=== PATIENT | female | born 1935 | race Caucasian/White ===

== ENCOUNTER 2016-10-22 10:48 | Emergency (ER) | payer MEDICARE, BC ==
[~2016-10-22 10:48] MED LIST: Sodium Chloride 0.9% 1,000 ML BAG ONE
[2016-10-22] MEDS ORDERED: methylPREDNISolone Sod Succ/PF 125 MG/2 ML VIAL ONE (11:37)
[2016-10-22 11:52] LABS: ALT (SGPT) 12 U/L (8-55); AST (SGOT) 17 U/L (5-34); Albumin 4.1 g/dL (3.4-4.8); Alkaline Phosphatase 104 U/L (40-150); Anion Gap 16 mmol/L (10-20); BUN (Urea Nitrogen) 13 mg/dL (9.8-20.1); Bilirubin, Total 0.8 mg/dL (0.2-1.2); CK (CPK) 32 U/L (29-168); Calc. Creatinine Clearance 0 mL/min (70-130); Calcium 10.3 mg/dL (7.8-10.44); Carbon Dioxide 21 mmol/L (23-31); Chloride 98 mmol/L (98-107); Estimated GFR-MDRD 86; Globulin 3.7 g/dL (2.4-3.5); Glucose 109 mg/dL (83-110); Potassium 4.1 mmol/L (3.5-5.1); Protein, Total 7.8 g/dL (5.8-8.1); Sodium 131 mmol/L (136-145)
[2016-10-22 11:56] LABS: CKMB 1.2 ng/mL (0-6.6); Troponin I 0.021 ng/mL (< 0.028)
[2016-10-22 12:10] LABS: Hemoglobin 14.1 g/dL (12.0-16.0); Mean Corpuscular HGB CONC 33.8 g/dL (32.0-36.0); Mean Corpuscular Hemoglobin 29.5 pg (27.0-31.0); Mean Corpuscular Volume 87.2 fL (81.0-99.0); Mean Platelet Volume 6.3 fL (7.4-10.4); Platelet Count 594 thou/uL (130-400); RBC Distribution Width 16.2 % (11.5-14.5); Red Blood Cell (RBC) Count 4.79 mill/uL (4.20-5.40); White Blood Cell (WBC) Count 14.7 thou/uL (4.8-10.8)
[2016-10-22 12:16] LABS: Anisocytosis SLIGHT = 6-15 cells (100X) (0-5/hpf); Band 5 % (5-11); Large Platelets SLIGHT; Lymphocytes 7 % (21-51); MDiff Complete? YES; Manual Diff?? YES; Monocytes 2 % (0-10); Neutrophil 86 % (42-75)
[2016-10-22 12:17] LABS: PLT Morphology Comment Appears Increased
--- NOTE | 2016-10-22 12:26 | RAD ---
PORTABLE CHEST HISTORY: Cough. COMPARISON: 12/14/2015 FINDINGS: Diffuse increased interstitial thickening, along with fibrotic stranding, is again noted. The heart is enlarged. Aortic calcification is noted. There is a mass-like density in the right lower lung, which is more prominent today. This is concer derian for a pulmonary parenchymal mass lesion and does show evidence of change when compared to films dating back to 2015. Consider further evaluation with CT. IMPRESSION: 1. Focal density in the lower right lung, medially, which could represent a focal infiltrate, altho ugh an underlying mass lesion cannot be excluded. Close followup. Consider CT. 2. There are chronic lung parenchymal changes, which are again noted, along with cardiomegaly and a therosclerotic changes in the aorta. POS: [facility]
[2016-10-22] MEDS ORDERED: Albuterol Sulfate 2.5 mg/0.5 ml Neb ONE (13:02)
== END 2016-10-22 13:27 | disposition short-term general hospital (02) ==
LOC: MADERS 10:48
DX: J18.9 Pneumonia, unspecified organism (principal); I10 Essential (primary) hypertension; E87.1 Hypo-osmolality and hyponatremia; J44.9 Chronic obstructive pulmonary disease, unspecified; Z87.891 Personal history of nicotine dependence; Z79.899 Other long term (current) drug therapy
CPT/HCPCS: 36415; 71010; 80053; 82550; 82553; 83880; 84484; 85025; 87040; 87070; 87205; 93005; 96365; 96375; J1956; J2930; J7050; J7611; J7620

== ENCOUNTER 2016-11-25 11:29 | Outpatient (CLI) | payer MEDICARE, BC ==
--- NOTE | 2016-11-25 13:21 | RAD ---
TWO VIEWS CHEST: History: Fall. FINDINGS: PA and lateral chest demonstrate blunting of the costophrenic angles bilaterally compatible with krista ateral pleural scar. Mild pulmonary vascular congestion is seen. No significant interval change is s een since the previous comparison exam from 12-14-15. IMPRESSION: Findings compatible with pleural scarring. POS: [facility]
--- NOTE | 2016-11-25 13:22 | RAD ---
AP AND OBLIQUE VIEWS OF THE RIGHT RIBS: History: Fall, right sided pain. FINDINGS: The right ribs are unremarkable. No definite evidence of right rib fracture is seen. No evidence of pneumothorax is seen. IMPRESSION: No evidence of right rib fracture seen. POS: [facility]
== END 2016-11-25 11:30 | disposition home or self-care (01) ==
LOC: MADRAD 11:29
PROVIDERS: ATTEND Family Medicine
DX: W19.XXXA Unspecified fall, initial encounter (principal)
CPT/HCPCS: 71020

== ENCOUNTER 2017-02-09 09:55 | Outpatient (CLI) | payer MEDICARE, BC ==
[2017-02-09 10:46] LABS: ALT (SGPT) 15 U/L (8-55); AST (SGOT) 21 U/L (5-34); Albumin 3.7 g/dL (3.4-4.8); Alkaline Phosphatase 84 U/L (40-150); Anion Gap 10 mmol/L (10-20); BUN (Urea Nitrogen) 8 mg/dL (9.8-20.1); Bilirubin, Direct 0.2 mg/dL (0.1-0.3); Bilirubin, Total 0.5 mg/dL (0.2-1.2); Calc. Creatinine Clearance 0 mL/min (70-130); Calcium 10.2 mg/dL (7.8-10.44); Carbon Dioxide 29 mmol/L (23-31); Cardiac Risk 2.7 (Less than 4.5); Chloride 94 mmol/L (98-107); Cholesterol 173 mg/dl (< 200 Desired); Estimated GFR-MDRD 79; Glucose 84 mg/dL (83-110); HDL Cholesterol 64 mg/dL (>60 Neg Risk); LDL Cholesterol, Calculated 95 mg/dL; Potassium 4.1 mmol/L (3.5-5.1); Protein, Total 7.3 g/dL (6.0-8.3); Sodium 129 mmol/L (136-145); Triglycerides 68 mg/dL (Less than 150)
[2017-02-09 10:47] LABS: #Basophils 0.2 thou/uL (0.0-0.2); #Eosinphils 0.3 thou/uL (0.0-0.7); #Lymphocytes 1.4 thou/uL (1.20-3.40); #Monocytes 0.8 thou/uL (0.11-0.59); #Neutrophils 3.8 thou/uL (1.40-6.50); %Basophils 2.7 % (0.0-1.0); %Eosinophils 4.5 % (0.0-10.0); %Neutrophils 58.8 % (42.0-75.0); Mean Corpuscular HGB CONC 31.3 g/dL (32.0-36.0); Mean Corpuscular Hemoglobin 26.9 pg (27.0-31.0); Mean Corpuscular Volume 85.9 fl (81.0-99.0); Mean Platelet Volume 5.6 fL (7.4-10.4); Platelet Count 594 thou/uL (130-400); RBC Distribution Width 16.8 % (11.5-14.5); Red Blood Cell (RBC) Count 5.19 mill/uL (4.20-5.40); White Blood Cell (WBC) Count 6.5 thou/uL (4.8-10.8)
== END 2017-02-09 09:56 | disposition home or self-care (01) ==
LOC: MADLABBHPM 09:55
PROVIDERS: ATTEND Family Medicine
DX: I42.9 Cardiomyopathy, unspecified (principal)
CPT/HCPCS: 36415; 80048; 80061; 80076; 85025

== ENCOUNTER 2017-11-29 10:49 | Emergency (ER) | payer MEDICARE, BC ==
--- NOTE | 2017-11-29 11:33 | RAD ---
CHEST 1 VIEW: HISTORY: Dyspnea. COMPARISON: 10/22/16. FINDINGS: Cardiac silhouette magnified and upper limits of normal in size. Pulmonary vasculature is more engor ged. Coarsened interstitial scarring throughout the right lung has progressed. Mediastinum is midli ne. No evidence of pneumothorax. IMPRESSION: 1. Worsening interstitial scarring throughout the right lung. Mild pulmonary vascular congestion. 2. Atherosclerosis. POS: [facility]
[2017-11-29 11:44] LABS: #Basophils 0.1 thou/uL (0.0-0.2); #Lymphocytes 0.9 thou/uL (1.20-3.40); #Monocytes 0.9 thou/uL (0.11-0.59); %Basophils 1.7 % (0.0-1.0); %Eosinophils 0.4 % (0.0-10.0); %Lymphocytes 11.1 % (21.0-51.0); %Monocytes 11.8 % (0.0-10.0); Hemoglobin 13.4 g/dL (12.0-16.0); Mean Corpuscular HGB CONC 33.2 g/dL (32.0-36.0); Mean Corpuscular Hemoglobin 28.2 pg (27.0-31.0); Mean Corpuscular Volume 84.9 fl (81.0-99.0); Mean Platelet Volume 5.2 fL (7.4-10.4); Platelet Count 479 thou/uL (130-400); RBC Distribution Width 16.9 % (11.5-14.5); Red Blood Cell (RBC) Count 4.75 mill/uL (4.20-5.40)
[2017-11-29] MEDS ORDERED: Levofloxacin 500 mg/D5W 100 ml Premix Bag ONE (11:48)
[2017-11-29] MEDS ORDERED: methylPREDNISolone Sod Succ/PF 125 MG/2 ML VIAL ONE (11:48)
[2017-11-29 11:56] LABS: Anion Gap 15 mmol/L (10-20); BUN (Urea Nitrogen) 11 mg/dL (9.8-20.1); Calc. Creatinine Clearance 0 mL/min (70-130); Carbon Dioxide 21 mmol/L (23-31); Chloride 97 mmol/L (98-107); Estimated GFR-MDRD 89; Glucose 96 mg/dL (83-110); Sodium 129 mmol/L (136-145)
[2017-11-29 12:00] LABS: CKMB 1.2 ng/mL (0-6.6); Troponin I 0.011 ng/mL (< 0.028)
[2017-11-29] MEDS ORDERED: Vancomycin HCl 500 MG VIAL ONE (12:09)
== END 2017-11-29 14:00 | disposition short-term general hospital (02) ==
LOC: MADERS 10:49
DX: I11.0 Hypertensive heart disease with heart failure (principal); I50.21 Acute systolic (congestive) heart failure; J44.9 Chronic obstructive pulmonary disease, unspecified; Z87.891 Personal history of nicotine dependence; Z79.899 Other long term (current) drug therapy
CPT/HCPCS: 71045; 80048; 82553; 83880; 84484; 85025; 93005; 94760; 96361; 96365; 96375; J1956; J2930; J3370; J7050; J7620

== ENCOUNTER 2018-06-23 07:13 | Emergency (ER) | payer MEDICARE, BC ==
[2018-06-23] MEDS ORDERED: Albuterol Sulfate 2.5 mg/0.5 ml Neb ONE ×2 (07:27)
[2018-06-23 07:45] LABS: #Basophils 0.1 thou/uL (0.0-0.2); #Lymphocytes 1.3 thou/uL (1.20-3.40); #Monocytes 1.1 thou/uL (0.11-0.59); #Neutrophils 14.2 thou/uL (1.40-6.50); %Basophils 0.8 % (0.0-1.0); %Eosinophils 0.1 % (0.0-10.0); %Lymphocytes 7.9 % (21.0-51.0); %Monocytes 6.5 % (0.0-10.0); %Neutrophils 84.7 % (42.0-75.0); Hemoglobin 15.4 g/dL (12.0-16.0); Mean Corpuscular HGB CONC 31.1 g/dL (32.0-36.0); Mean Corpuscular Hemoglobin 27.4 pg (27.0-31.0); Mean Corpuscular Volume 87.9 fL (78.0-98.0); Mean Platelet Volume 5.6 fL (7.4-10.4); Platelet Count 663 thou/uL (130-400); RBC Distribution Width 16.2 % (11.5-14.5); Red Blood Cell (RBC) Count 5.64 mill/uL (4.20-5.40); White Blood Cell (WBC) Count 16.8 thou/uL (4.8-10.8)
[2018-06-23 08:02] LABS: ALT (SGPT) 24 U/L (8-55); AST (SGOT) 29 U/L (5-34); Albumin 4.2 g/dL (3.4-4.8); Alkaline Phosphatase 79 U/L (40-150); Anion Gap 15 mmol/L (10-20); BUN (Urea Nitrogen) 17 mg/dL (9.8-20.1); Bilirubin, Total 0.5 mg/dL (0.2-1.2); Calc. Creatinine Clearance 0 mL/min (70-130); Calcium 10.9 mg/dL (7.8-10.44); Carbon Dioxide 23 mmol/L (23-31); Chloride 100 mmol/L (98-107); Estimated GFR-MDRD 64; Globulin 3.2 g/dL (2.4-3.5); Glucose 123 mg/dL (83-110); Potassium 4.4 mmol/L (3.5-5.1); Protein, Total 7.4 g/dL (6.0-8.3); Sodium 134 mmol/L (136-145)
--- NOTE | 2018-06-23 08:17 | RAD ---
CHEST ONE VIEW: History: Chest pain. Dyspnea. Comparison: 11-29-17 FINDINGS: Cardiac silhouette is magnified and upper limits of normal in size. Pulmonary vasculature is engorged . Widespread reticular nodular interstitial prominence is similar in appearance to the previous exam. Fluid layering at the right costophrenic angle has increased slightly. Patchy right basilar infiltra te is more pronounced. No lobar consolidation or evidence of pneumothorax. IMPRESSION: 1. Increasing right basilar infiltrate and pleural fluid could be related to pulmonary vascular conge stion or developing right basilar pneumonitis. Clinical correlation regarding other signs of symptoms of right basilar pneumonitis is required. Please consider continued radiographic follow up. 2. Atherosclerosis. POS: [facility]
[2018-06-23 08:26] LABS: CKMB 8.1 ng/mL (0-6.6)
== END 2018-06-23 08:48 | disposition short-term general hospital (02) ==
LOC: MADERS 07:13
DX: J44.9 Chronic obstructive pulmonary disease, unspecified (principal); Z79.899 Other long term (current) drug therapy; Z87.891 Personal history of nicotine dependence
CPT/HCPCS: 36415; 71045; 80053; 82553; 83605; 83880; 84484; 85025; 93005; 94644; 94660; 94760; J7611

== ENCOUNTER 2018-09-12 18:54 | Emergency (ER) | payer MEDICARE, BC ==
[2018-09-12] MEDS ORDERED: Acetaminophen 500 MG TAB ONE (19:32)
[2018-09-12] MEDS ORDERED: Ibuprofen 600 MG TAB ONE (19:32)
--- NOTE | 2018-09-12 20:13 | RAD ---
RIGHT WRIST THREE VIEWS: 09/12/2018 HISTORY: Injury. Deformity. COMPARISON: None. FINDINGS: There is positive ulnar variance. There is no widening of the scapholunate interval. No acute displ aced fracture or evidence of dislocation is seen. There is degenerative change at the first carpomet acarpal joint. IMPRESSION: Chronic findings, as detailed above. No displaced fracture or evidence of dislocation is seen. Primo mmend immobilization and follow-up imaging in 7-10 days, if symptoms persist. POS: [facility]
== END 2018-09-12 20:25 | disposition home or self-care (01) ==
LOC: MADERS 18:54
DX: S63.501A Unspecified sprain of right wrist, initial encounter (principal); J44.9 Chronic obstructive pulmonary disease, unspecified; I11.0 Hypertensive heart disease with heart failure; I50.9 Heart failure, unspecified; Z87.891 Personal history of nicotine dependence; Z79.51 Long term (current) use of inhaled steroids; Z79.899 Other long term (current) drug therapy; W18.30XA Fall on same level, unspecified, initial encounter

== ENCOUNTER 2019-04-24 17:33 | Inpatient (IN) | payer MEDICARE, BC ==
[2019-04-24 18:08] VITALS: BMI 26.5
[2019-04-24] MEDS ORDERED: EUCERIN CREME 57 GRAM TUBE TP PRN (19:55)
[2019-04-24] MEDS ORDERED: diphenhydrAMINE 25 MG CAP PO PRN (19:55)
[2019-04-24] MEDS: Apixaban 5 MG TAB PO SCH (21:19)
[2019-04-24] MEDS: Atorvastatin Calcium 10 MG TAB PO SCH (21:20)
[2019-04-24] MEDS: hydrOXYzine 25 MG TAB PO SCH (21:20)
[2019-04-24] MEDS: Aspirin 81 mg Enteric Coated Tablet PO SCH (21:20)
[2019-04-24] MEDS: Mometasone/Formoterol 60 PUFF AER INH SCH (21:20)
[2019-04-24] MEDS: traMADol HCl 50 MG TAB PO PRN (21:21)
[2019-04-24] MEDS: Senokot S 8.6-50 MG TAB PO SCH (21:24)
[2019-04-25 05:46] LABS: ALT (SGPT) 29 U/L (8-55); AST (SGOT) 21 U/L (5-34); Albumin 2.8 g/dL (3.4-4.8); Alkaline Phosphatase 101 U/L (40-110); Anion Gap 11 mmol/L (10-20); BUN (Urea Nitrogen) 10 mg/dL (9.8-20.1); Bilirubin, Total 1.1 mg/dL (0.2-1.2); Calc. Creatinine Clearance 65 mL/min (70-130); Calcium 9.6 mg/dL (7.8-10.44); Carbon Dioxide 28 mmol/L (23-31); Chloride 100 mmol/L (98-107); Estimated GFR-MDRD 88; Globulin 2.7 g/dL (2.4-3.5); Glucose 96 mg/dL (83-110); Protein, Total 5.5 g/dL (6.0-8.3); Sodium 135 mmol/L (136-145)
[2019-04-25 06:09] LABS: Band 1 % (5-11); Eosinophils 4 % (0-10); Hemoglobin 8.6 g/dL (12.0-16.0); Lymphocytes 20 % (21-51); MDiff Complete? YES; Mean Corpuscular HGB CONC 30.9 g/dL (32.0-36.0); Mean Corpuscular Hemoglobin 27.3 pg (27.0-31.0); Mean Corpuscular Volume 88.4 fL (78.0-98.0); Mean Platelet Volume 5.6 fL (7.4-10.4); Monocytes 11 % (0-10); Neutrophil 63 % (42-75); Platelet Count 517 thou/uL (130-400); Platelet Morphology Comment Appears Increased; Polychromasia SLIGHT = 2-3 cells (100X) (0-2/hpf); Reactive Lymphocytes 1 % (0-10); Red Blood Cell (RBC) Count 3.15 mill/uL (4.20-5.40); White Blood Cell (WBC) Count 11.3 thou/uL (4.8-10.8)
[2019-04-25] MEDS: Aspirin 81 mg Enteric Coated Tablet PO SCH ×2 (08:45→20:52)
[2019-04-25] MEDS: Apixaban 5 MG TAB PO SCH ×2 (08:45→20:52)
[2019-04-25] MEDS: hydrOXYzine 25 MG TAB PO SCH ×4 (08:45→20:53)
[2019-04-25] MEDS: Carvedilol 3.125 MG TAB PO SCH ×2 (08:45→16:43)
[2019-04-25] MEDS: Senokot S 8.6-50 MG TAB PO SCH ×2 (08:45→20:53)
[2019-04-25] MEDS: Ferrous Gluconate 324 MG TAB PO SCH ×2 (08:46→16:43)
[2019-04-25] MEDS: Multivitamin W/ Minerals 1 TAB PO SCH (08:46)
[2019-04-25] MEDS: Mometasone/Formoterol 60 PUFF AER INH SCH ×2 (08:48→20:53)
--- NOTE | 2019-04-25 11:46 | HP ---
CHIEF COMPLAINT: Weak following left hip replacement. HISTORY OF PRESENT ILLNESS: The patient is an 84-year-old white female, who has a history of paroxysmal atrial fibrillation; cardiomyopathy, Takotsubo; COPD; hypertension; and cancer of the lung, for which she has undergone a left lower lobectomy. The patient has severe arthritis, particularly of the left hip that was symptomatic. She was hospitalized at [facility] from 2018 to 04/24/2019, and underwent a left total hip replacement. This was done by Dr. Atif Ortega on 04/19/2019. Her postop course has been complicated by hyponatremia that has improved. Acute renal failure, which is resolved, and abnormal liver enzymes due to hypotension that is resolved. She also had an episode of paroxysmal atrial fibrillation and while there, saw Dr. Denny, her food service manager. The patient had had a severe decline in her ejection fraction when she first was found to have the cardiomyopathy, but this has improved to an ejection fraction of 51% without evidence of any ischemia. The episode of atrial fibrillation while hospitalized was felt to not receiving her Cardizem for several days following her surgery, all of which has been restarted. She was doing much better and was transferred late on the afternoon of 04/24/2019 to [facility] for purpose of physical therapy and occupational therapy. We saw the patient early on the morning of 04/25/2019. She said she is doing a lot better, has been walking some with her rolling walker. Said she has been having some watery drainage from that left hip. Otherwise, she thinks she is doing good. PAST MEDICAL HISTORY: Hospitalized at [facility] from 04/19/2019 to 04/24/2019 for left total hip replacement, paroxysmal atrial fibrillation, hypertension, COPD, Takotsubo cardiomyopathy, initially presenting with ejection fraction of 10% to 15%, but now has improved to ejection fraction of 51% without evidence of ischemia, history of a left lumbar radiculopathy, ventral hernia, history of smoking, cancer of the lung for which she has undergone a left lower lobectomy 11/25/2012, GERD, constipation. PAST SURGICAL HISTORY: She has had a hysterectomy, right wrist surgery, cholecystectomy, left lower lobectomy on 11/25/2012, eyelid repair in April 2017. PRESENT MEDICATIONS: 1. Acetaminophen 650 mg every 4 hours as needed. 2. DuoNebs q.i.d. and every 4 hours as needed. 3. Eliquis 2.5 mg b.i.d. 4. Aspirin 81 mg b.i.d. 5. Atorvastatin 10 mg at bedtime. 6. Carvedilol 3.125 mg b.i.d. 7. Diltiazem extended release 180 mg daily. 8. Diphenhydramine 25 mg every 3 hours p.r.n. itch. 9. Ferrous gluconate 324 mg b.i.d. 10. Hydroxyzine 25 mg q.i.d. scheduled. 11. Theragran-M 1 daily. 12. Symbicort 160/4.5 two puffs b.i.d. 13. Senokot-S 1 b.i.d. 14. Tramadol 50 mg every 8 hours as needed. ALLERGIES: ERYTHROMYCIN, MORPHINE, OXYCODONE, PENICILLIN, SULFA DRUGS, GABAPENTIN, AND PREDNISONE. REVIEW OF SYSTEMS: GENERAL: The patient says she is doing good. She has not had any chills or fever. HEAD AND NECK: No complaints. PULMONARY: The patient said her breathing is good. CARDIOVASCULAR: No chest pain. GI: No nausea or vomiting. Bowels are working well. : No complaint. MUSCULOSKELETAL: Sore in the left hip from her surgery. ADLs: Prior to her hospitalization, she was independent of all her ADLs. HABITS: The patient used to smoke, which stopped many years ago. Alcohol, none. SOCIAL HISTORY: The patient is and lives with her . CODE STATUS: Full code. PHYSICAL EXAMINATION: GENERAL: Shows a very pleasant 84-year-old white female, who is alert and oriented x3, and appears comfortable. VITAL SIGNS: Show a temperature of 98.5, pulse 79, respirations 16, O2 saturation 95% on 2 L, blood pressure 129/54. Her weight is 140. HEENT: Head, normocephalic and atraumatic. Eyes, pupils are equal, round, and reactive. Ears, TMs are clear. Nose, normal. Mouth and throat, normal. The patient is wearing a nasal cannula. NECK: Carotids are equal and strong. No bruits. Thyroid not enlarged. LUNGS: Clear. HEART: Regular rate. No murmurs. ABDOMEN: Soft. No organomegaly. No areas of tenderness. EXTREMITIES: The patient has an incision running vertically over the left hip that is closed with kim. The wound has a moderate amount of a serous drainage on the dressing, this has been changed. NEUROLOGIC: The patient is alert and oriented x3. She is a little weak in the left leg. Otherwise, there is no focal weakness. IMPRESSION: 1. Weakness and deconditioning. a. Following a left total hip replacement on 04/19/2019. 2. Hospitalized at [facility] from 04/19/2019 to 04/24/2019 for left total hip replacement. Postop complicated by hyponatremia, liver enzyme abnormalities from hypotension, acute renal failure that resolved, and episode of atrial fibrillation that spontaneously converted to sinus rhythm. 3. Paroxysmal atrial fibrillation. a. On Cardizem and Eliquis. 4. Takotsubo cardiomyopathy. a. Initially found with apical ballooning, ejection fraction of 10% to 15%. b. Improved with recent echocardiogram showing ejection fraction of 51%. No evidence of ischemia. c. No evidence of acute congestive heart failure. 5. Hypertension. 6. Chronic obstructive pulmonary disease. 7. Chronic hypoxemia. a. Requiring supplemental O2. 8. Cancer of the lung. a. Status post left lower lobectomy on 11/25/2012. b. No signs of recurrence. 9. Constipation. PLAN: The patient has been admitted to [facility] for purpose of PT and OT, efforts to try to improve her general strength, deconditioning, and get her back to her same functional level of activities. Code status, full code. Job ID: [id number] [facility]
[2019-04-25] MEDS: traMADol HCl 50 MG TAB PO PRN ×2 (14:16→22:32)
[2019-04-25] MEDS: Atorvastatin Calcium 10 MG TAB PO SCH (20:53)
[2019-04-26] MEDS: Acetaminophen 325 MG TAB PO PRN ×2 (02:51→17:58)
[2019-04-26] MEDS: hydrOXYzine 25 MG TAB PO SCH ×2 (08:56→20:38)
[2019-04-26] MEDS: Multivitamin W/ Minerals 1 TAB PO SCH (08:56)
[2019-04-26] MEDS: Apixaban 5 MG TAB PO SCH ×2 (08:56→20:37)
[2019-04-26] MEDS: Ferrous Gluconate 324 MG TAB PO SCH ×2 (08:56→16:50)
[2019-04-26] MEDS: Senokot S 8.6-50 MG TAB PO SCH ×2 (08:56→20:37)
[2019-04-26] MEDS: Carvedilol 3.125 MG TAB PO SCH ×2 (08:57→16:50)
[2019-04-26] MEDS: Mometasone/Formoterol 60 PUFF AER INH SCH ×2 (08:57→20:41)
[2019-04-26] MEDS: Aspirin 81 mg Enteric Coated Tablet PO SCH ×2 (08:57→20:37)
--- NOTE | 2019-04-26 09:00 | PRG ---
DATE OF SERVICE: 04/26/2019 SUBJECTIVE: The patient says she is feeling good this morning. She had a good night. She has already been for physical therapy and has been walking. She is doing very well with her walking using a rolling walker and with her transfers, still having some serous drainage from that left hip incision. OBJECTIVE: GENERAL: The patient is sitting up in a bedside chair. She is alert, talkative, appears comfortable, in no distress. VITAL SIGNS: Her temperature is 97.9 pulse 81, respirations 14, O2 saturation 99% on room air, and blood pressure 126/60. LUNGS: Clear. HEART: Regular rate. EXTREMITIES: Left hip dressing that was changed about 4 hours ago was dry. There is no peripheral edema. ASSESSMENT: 1. Weakness and deconditioning. a. Walking up to 150 to 200 feet several times a day with a rolling walker and standby assistance, transferring with minimal assistance. 2. Hospitalized at [facility] from 04/19/2019 to 04/24/2019 for left total hip replacement. Postop complicated by hyponatremia, liver enzyme abnormalities from hypotension, acute renal failure that resolved, and episode of atrial fibrillation that spontaneously converted to sinus rhythm. 3. Paroxysmal atrial fibrillation. a. On Cardizem and Eliquis. 4. Takotsubo cardiomyopathy. a. Initially found with apical ballooning, ejection fraction of 10% to 15%. b. No evidence of acute congestive heart failure as of 04/26. c. No evidence of acute congestive heart failure. 5. Hypertension. 6. Chronic obstructive pulmonary disease. 7. Chronic hypoxemia. a. Requires O2 when sleeping and p.r.n. 8. Cancer of the lung. a. Status post left lower lobectomy on 11/25/2012. b. No signs of recurrence. 9. Constipation. PLAN: The patient is making excellent progress. Continue present care. Continue PT. Job ID: [id number] [facility]
[2019-04-26] MEDS: traMADol HCl 50 MG TAB PO PRN (09:17)
[2019-04-26] MEDS ORDERED: traMADol HCl 50 MG TAB PO SCH (14:00)
[2019-04-26] MEDS: Atorvastatin Calcium 10 MG TAB PO SCH (20:38)
[2019-04-27] MEDS: traMADol HCl 50 MG TAB PO PRN ×2 (06:19→12:56)
[2019-04-27] MEDS: Multivitamin W/ Minerals 1 TAB PO SCH (08:26)
[2019-04-27] MEDS: Carvedilol 3.125 MG TAB PO SCH ×2 (08:26→17:35)
[2019-04-27] MEDS: Senokot S 8.6-50 MG TAB PO SCH ×2 (08:26→20:10)
[2019-04-27] MEDS: Aspirin 81 mg Enteric Coated Tablet PO SCH ×2 (08:26→20:10)
[2019-04-27] MEDS: Ferrous Gluconate 324 MG TAB PO SCH ×2 (08:26→17:35)
[2019-04-27] MEDS: Mometasone/Formoterol 60 PUFF AER INH SCH ×2 (08:26→20:16)
[2019-04-27] MEDS: Apixaban 5 MG TAB PO SCH ×2 (08:27→20:09)
--- NOTE | 2019-04-27 10:52 | PRG ---
DATE OF SERVICE: 04/27/2019 SUBJECTIVE: The patient says she is doing good. She is doing excellent with physical therapy. She said the drainage from the left hip is less. She is having some pain in that left knee. OBJECTIVE: GENERAL: The patient is sitting up in a chair. She is alert, appears comfortable, in no distress. She is a little agitated because she has been up, but has not been to therapy yet, but therapist is just arriving. VITAL SIGNS: Her temperature is 97.7, pulse 70, respirations 16, O2 saturation 99% on room air, and blood pressure 126/62. LUNGS: Clear. HEART: Regular rate. EXTREMITIES: Dressing that was placed on the left hip incision last night remains dry. There is no peripheral edema. Her left knee has no effusion. There is good range of motion. There is a little crepitation. There is some bruising along the lateral aspect of the knee. No point tenderness. ASSESSMENT: 1. Weakness and deconditioning. a. Walking up to 150 to 200 feet several times a day with a rolling walker and standby assistance, transferring with minimal assistance. b. Continues to improve as of 04/27. 2. Hospitalized at [facility] from 04/19/2019 to 04/24/2019 for left total hip replacement. Postop complicated by hyponatremia, liver enzyme abnormalities from hypotension, acute renal failure that resolved, and episode of atrial fibrillation that spontaneously converted to sinus rhythm. 3. Paroxysmal atrial fibrillation. a. On Cardizem and Eliquis. 4. Takotsubo cardiomyopathy. a. Initially found with apical ballooning, ejection fraction of 10% to 15%. b. No evidence of acute congestive heart failure as of 04/27. 5. Hypertension. 6. Chronic obstructive pulmonary disease. 7. Chronic hypoxemia. a. Requires O2 when sleeping and p.r.n. 8. Cancer of the lung. a. Status post left lower lobectomy on 11/25/2012. b. No signs of recurrence. 9. Constipation. PLAN: Continue present care. Continue PT. The patient's drainage from the left hip is gradually getting less and healing. The patient is due to see her surgeon, Dr. Ortega, on 05/09. Job ID: [id number] [facility]
[2019-04-27] MEDS: Atorvastatin Calcium 10 MG TAB PO SCH (20:08)
[2019-04-27] MEDS: hydrOXYzine 25 MG TAB PO SCH (20:10)
[2019-04-28] MEDS: traMADol HCl 50 MG TAB PO PRN ×3 (06:04→20:51)
[2019-04-28] MEDS: Ferrous Gluconate 324 MG TAB PO SCH ×2 (08:25→17:04)
[2019-04-28] MEDS: Carvedilol 3.125 MG TAB PO SCH ×2 (08:25→17:04)
[2019-04-28] MEDS: Multivitamin W/ Minerals 1 TAB PO SCH (08:25)
[2019-04-28] MEDS: Apixaban 5 MG TAB PO SCH ×2 (08:25→20:46)
[2019-04-28] MEDS: Aspirin 81 mg Enteric Coated Tablet PO SCH ×2 (08:25→20:46)
[2019-04-28] MEDS: Senokot S 8.6-50 MG TAB PO SCH ×2 (08:25→20:47)
[2019-04-28] MEDS: Mometasone/Formoterol 60 PUFF AER INH SCH ×2 (08:26→20:48)
--- NOTE | 2019-04-28 08:40 | PRG ---
DATE OF SERVICE: 04/28/2019 SUBJECTIVE: The patient says she is doing good. She is doing good with therapy. She is just worried about her left knee. Her left knee is still sore. She is due to see her orthopedic surgeon back in followup on 05/09. Nurses report that the drainage from the incision on the left hip is much less. OBJECTIVE: GENERAL: The patient is alert, appears in no distress. She is still lying in bed, but appears comfortable, in no distress. VITAL SIGNS: Pulse had been 75 and O2 saturations 95% on 2 L, temperature 97, respirations 16, blood pressure 126/62. LUNGS: Clear. HEART: Regular rate. EXTREMITIES: No edema. The left hip incision is healing. There is moderate amount of serous drainage on the dressing. Dressing though has been in place since 04/26/19. Overall looks like the drainage is less. There is bruising around the right hip that is extravasated down to the left knee on the lateral posterior aspect. The knee has no effusion. ASSESSMENT: 1. Weakness and deconditioning. a. Walking up to 150 to 200 feet several times a day with a rolling walker and standby assistance, transferring with minimal assistance. b. Continues to improve as of 04/28. 2. Hospitalized at [facility] from 04/19/2019 to 04/24/2019 for left total hip replacement. Postop complicated by hyponatremia, liver enzyme abnormalities from hypotension, acute renal failure that resolved, and episode of atrial fibrillation that spontaneously converted to sinus rhythm. 3. Paroxysmal atrial fibrillation. a. On Cardizem and Eliquis. 4. Takotsubo cardiomyopathy. a. Initially found with apical ballooning, ejection fraction of 10% to 15%. b. No evidence of acute congestive heart failure as of 04/28. 5. Hypertension. 6. Chronic obstructive pulmonary disease. 7. Chronic hypoxemia. a. Requires O2 when sleeping and p.r.n. 8. Cancer of the lung. a. Status post left lower lobectomy on 11/25/2012. b. No signs of recurrence. 9. Constipation. 10. Left knee pain. PLAN: Continue present care. X-ray of the left knee. The patient due to see her orthopedic surgeon, Dr. Ortega on 05/09. We will have him then also check her left knee. Job ID: [id number] [facility]
--- NOTE | 2019-04-28 09:06 | RAD ---
Exam:3 views left knee HISTORY: Pain. COMPARISON: None FINDINGS: Mild bony mineralization. No significant joint effusion. Mild loss of the lateral compartme nt joint space height. No fracture. IMPRESSION: No fracture. Mild narrowing of the lateral compartment joint space
[2019-04-28] MEDS: hydrOXYzine 25 MG TAB PO SCH (20:47)
[2019-04-28] MEDS: Atorvastatin Calcium 10 MG TAB PO SCH (20:47)
[2019-04-29] MEDS: traMADol HCl 50 MG TAB PO PRN ×2 (06:21→13:22)
[2019-04-29] MEDS: Mometasone/Formoterol 60 PUFF AER INH SCH ×2 (08:26→21:50)
[2019-04-29] MEDS: Senokot S 8.6-50 MG TAB PO SCH ×2 (08:27→21:46)
[2019-04-29] MEDS: Aspirin 81 mg Enteric Coated Tablet PO SCH ×2 (08:28→21:46)
[2019-04-29] MEDS: Apixaban 5 MG TAB PO SCH ×2 (08:28→21:46)
[2019-04-29] MEDS: Ferrous Gluconate 324 MG TAB PO SCH ×2 (08:28→17:03)
[2019-04-29] MEDS: Carvedilol 3.125 MG TAB PO SCH ×2 (08:28→17:03)
[2019-04-29] MEDS: Multivitamin W/ Minerals 1 TAB PO SCH (08:28)
--- NOTE | 2019-04-29 11:16 | PRG ---
DATE OF SERVICE: 04/29/2019 SUBJECTIVE: The patient says she is doing good this morning. She has already had a good workup with therapy. She is doing good with them. She had a very good night. Left knee feels a little better today. OBJECTIVE: GENERAL: The patient is sitting up in a chair, is very cheerful and appears comfortable, in no distress. VITAL SIGNS: Temperature of 98.5, pulse 78, respirations 18, O2 saturation 98% on room air, blood pressure is 134/62. LUNGS: Clear. HEART: Regular rate. EXTREMITIES: Her left leg has just some trace edema around the ankle. LABORATORY DATA: X-ray of the left knee showed no fracture. There is some mild narrowing of the lateral compartment. ASSESSMENT: 1. Weakness and deconditioning. a. Walking up to 150 to 200 feet several times a day with a rolling walker and standby assistance, transferring with minimal assistance. b. Continues to improve as of 04/29. 2. Hospitalized at [facility] from 04/19/2019 to 04/24/2019 for left total hip replacement. Postop complicated by hyponatremia, liver enzyme abnormalities from hypotension, acute renal failure that resolved, and episode of atrial fibrillation that spontaneously converted to sinus rhythm. 3. Paroxysmal atrial fibrillation. a. On Cardizem and Eliquis. 4. Takotsubo cardiomyopathy. a. Initially found with apical ballooning, ejection fraction of 10% to 15%. b. No evidence of acute congestive heart failure as of 04/29. 5. Hypertension. 6. Chronic obstructive pulmonary disease. 7. Chronic hypoxemia. a. Requires O2 when sleeping and p.r.n. 8. Cancer of the lung. a. Status post left lower lobectomy on 11/25/2012. b. No signs of recurrence. 9. Constipation. 10. Left knee pain. a. Arthritis of the left knee present on x-ray with mild narrowing of the lateral joint compartment. PLAN: Continue present care. Continue PT/OT when the patient sees her orthopedic surgeon about her hip. She will also inquire about the left knee. Job ID: [id number] [facility]
[2019-04-29] MEDS: Atorvastatin Calcium 10 MG TAB PO SCH (21:46)
[2019-04-29] MEDS: hydrOXYzine 25 MG TAB PO SCH (21:46)
[2019-04-30] MEDS: traMADol HCl 50 MG TAB PO PRN ×2 (05:43→17:49)
[2019-04-30] MEDS: Aspirin 81 mg Enteric Coated Tablet PO SCH ×2 (08:05→21:26)
[2019-04-30] MEDS: Multivitamin W/ Minerals 1 TAB PO SCH (08:05)
[2019-04-30] MEDS: Senokot S 8.6-50 MG TAB PO SCH (08:05)
[2019-04-30] MEDS: Ferrous Gluconate 324 MG TAB PO SCH ×2 (08:05→17:49)
[2019-04-30] MEDS: Carvedilol 3.125 MG TAB PO SCH ×2 (08:05→17:49)
[2019-04-30] MEDS: Apixaban 5 MG TAB PO SCH ×2 (08:06→21:24)
[2019-04-30] MEDS: Mometasone/Formoterol 60 PUFF AER INH SCH (08:11)
[2019-04-30] MEDS ORDERED: Senokot S 8.6-50 MG TAB PO PRN (11:19)
[2019-04-30] MEDS ORDERED: Polyethylene Glycol 3350 17 GM Packet PO SCH (11:30)
[2019-04-30] MEDS: SYMBICORT 160/4.5 INH SCH (17:52)
[2019-04-30] MEDS: hydrOXYzine 25 MG TAB PO SCH (21:25)
[2019-04-30] MEDS: Atorvastatin Calcium 10 MG TAB PO SCH (21:26)
[2019-05-01] MEDS: SYMBICORT 160/4.5 INH SCH ×2 (05:59→18:01)
[2019-05-01] MEDS: Ferrous Gluconate 324 MG TAB PO SCH ×2 (08:02→17:59)
[2019-05-01] MEDS: Apixaban 5 MG TAB PO SCH ×2 (08:02→20:59)
[2019-05-01] MEDS: Polyethylene Glycol 3350 17 GM Packet PO SCH (08:02)
[2019-05-01] MEDS: Aspirin 81 mg Enteric Coated Tablet PO SCH ×2 (08:02→20:59)
[2019-05-01] MEDS: Multivitamin W/ Minerals 1 TAB PO SCH (08:02)
[2019-05-01] MEDS: Carvedilol 3.125 MG TAB PO SCH ×2 (08:02→17:59)
[2019-05-01] MEDS ORDERED: Bisacodyl 10 MG SUPP PR PRN (09:12)
[2019-05-01] MEDS: traMADol HCl 50 MG TAB PO PRN (09:30)
[2019-05-01] MEDS: Atorvastatin Calcium 10 MG TAB PO SCH (20:59)
[2019-05-01] MEDS: hydrOXYzine 25 MG TAB PO SCH (20:59)
[2019-05-02] MEDS: traMADol HCl 50 MG TAB PO PRN ×2 (05:41→14:14)
[2019-05-02] MEDS: Carvedilol 3.125 MG TAB PO SCH ×2 (08:08→17:03)
[2019-05-02] MEDS: Ferrous Gluconate 324 MG TAB PO SCH ×2 (08:08→17:03)
[2019-05-02] MEDS: Apixaban 5 MG TAB PO SCH ×2 (08:09→20:06)
[2019-05-02] MEDS: Multivitamin W/ Minerals 1 TAB PO SCH (08:09)
[2019-05-02] MEDS: Polyethylene Glycol 3350 17 GM Packet PO SCH (08:09)
[2019-05-02] MEDS: Aspirin 81 mg Enteric Coated Tablet PO SCH ×2 (08:09→20:06)
[2019-05-02] MEDS: SYMBICORT 160/4.5 INH SCH ×2 (08:13→20:05)
--- NOTE | 2019-05-02 11:30 | PRG ---
DATE OF SERVICE: 05/01/2019 SUBJECTIVE: The patient says she is doing very well today. She had a good night. Her left hip is feeling good. She is not having anymore of the knee pain. She is doing well with her therapy. She has had some trouble with constipation, but this is much better. Her Senokot was increased and she was placed on MiraLAX that she uses at home on a regular basis. OBJECTIVE: GENERAL: The patient is sitting up in a chair, is alert, looks very comfortable and in no distress. VITAL SIGNS: Show a temperature of 98.3, pulse 76, respirations 18, O2 saturation 99% on 1.5 L, blood pressure 134/61. LUNGS: Clear. HEART: Regular rate. EXTREMITIES: There is trace edema. The wound is healing well. There is just some surrounding bruising and the serous drainage continues to diminish. ASSESSMENT: 1. Weakness and deconditioning. a. Walking up to 150 to 200 feet several times a day with a rolling walker and standby assistance, transferring with minimal assistance. b. Continues to improve as of 05/01. 2. Hospitalized at [facility] from 04/19/2019 to 04/24/2019 for left total hip replacement. Postop complicated by hyponatremia, liver enzyme abnormalities from hypotension, acute renal failure that resolved, and episode of atrial fibrillation that spontaneously converted to sinus rhythm. 3. Paroxysmal atrial fibrillation. a. On Cardizem and Eliquis. 4. Takotsubo cardiomyopathy. a. Initially found with apical ballooning, ejection fraction of 10% to 15%. b. No evidence of acute congestive heart failure as of 05/01. 5. Hypertension. 6. Chronic obstructive pulmonary disease. 7. Chronic hypoxemia. a. Requires O2 when sleeping and p.r.n. 8. Cancer of the lung. a. Status post left lower lobectomy on 11/25/2012. b. No signs of recurrence. 9. Constipation. a. Controlled. 10. Left knee pain. a. Arthritis of the left knee present on x-ray with mild narrowing of the lateral joint compartment. b. Presently free of pain as of 05/01/2019. PLAN: Continue present care. Continue PT and OT. Have ordered Dulcolax suppository if needed. Job ID: [id number] [facility]
--- NOTE | 2019-05-02 11:30 | PRG ---
DATE OF SERVICE: 05/02/2019 SUBJECTIVE: The patient says she is doing good today. She said her leg is feeling better. She said there has been no more drainage. The dressing, she has on has been there for over 24 hours and remains dry. She is using her Symbicort instead of the Dulera that is on the hospital formulary. She thinks this works better for her. She had no real complaint today. OBJECTIVE: GENERAL: The patient walking the hallway, sat down on her four- wheel walker during my exam. She is alert, appears in no distress. VITAL SIGNS: Her temp is 98.4, pulse 82, respirations are 18, O2 saturation 96 % on 2 L. Her blood pressure 131/60. LUNGS: There is a little faint expiratory wheeze present. There are no rales. HEART: Regular rate. EXTREMITIES: Just trace edema. ASSESSMENT: 1. Weakness and deconditioning. a. Walking up to 150 to 200 feet several times a day with a rolling walker and standby assistance, transferring with minimal assistance. b. Continues to improve as of 05/02. 2. Hospitalized at [facility] from 04/19/2019 to 04/24/2019 for left total hip replacement. Postop complicated by hyponatremia, liver enzyme abnormalities from hypotension, acute renal failure that resolved, and episode of atrial fibrillation that spontaneously converted to sinus rhythm. 3. Paroxysmal atrial fibrillation. a. On Cardizem and Eliquis. 4. Takotsubo cardiomyopathy. a. Initially found with apical ballooning, ejection fraction of 10% to 15%. b. No evidence of acute congestive heart failure as of 04/29. 5. Hypertension. 6. Chronic obstructive pulmonary disease. 7. Chronic hypoxemia. a. Requires O2 when sleeping and p.r.n. 8. Cancer of the lung. a. Status post left lower lobectomy on 11/25/2012. b. No signs of recurrence. 9. Constipation. 10. Left knee pain. a. Arthritis of the left knee present on x-ray with mild narrowing of the lateral joint compartment. b. Left knee is feeling good. No pain. 11. 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 a. Healing well as of 05/02/2019. PLAN: The patient will continue her O2 as needed. Continue her Symbicort. Utilize her DuoNeb as needed. Continue PT and OT. Job ID: [id number] [facility]
[2019-05-02] MEDS ORDERED: Furosemide 40 MG TAB PO SCH (15:00)
[2019-05-02 15:25] LABS: Anion Gap 12 mmol/L (10-20); BUN (Urea Nitrogen) 18 mg/dL (9.8-20.1); Calc. Creatinine Clearance 59 mL/min (70-130); Calcium 9.8 mg/dL (7.8-10.44); Carbon Dioxide 24 mmol/L (23-31); Chloride 100 mmol/L (98-107); Estimated GFR-MDRD 80; Glucose 84 mg/dL (83-110); Potassium 4.3 mmol/L (3.5-5.1); Sodium 132 mmol/L (136-145)
[2019-05-02] MEDS: Atorvastatin Calcium 10 MG TAB PO SCH (20:06)
[2019-05-02] MEDS: hydrOXYzine 25 MG TAB PO SCH (20:06)
[2019-05-03] MEDS: Ferrous Gluconate 324 MG TAB PO SCH ×2 (08:18→17:33)
[2019-05-03] MEDS: Apixaban 5 MG TAB PO SCH ×2 (08:18→20:32)
[2019-05-03] MEDS: Furosemide 20 MG TAB PO SCH (08:18)
[2019-05-03] MEDS: SYMBICORT 160/4.5 INH SCH ×2 (08:19→20:33)
[2019-05-03] MEDS: Multivitamin W/ Minerals 1 TAB PO SCH (08:19)
[2019-05-03] MEDS: Aspirin 81 mg Enteric Coated Tablet PO SCH ×2 (08:19→20:32)
[2019-05-03] MEDS: Carvedilol 3.125 MG TAB PO SCH ×2 (08:19→17:33)
[2019-05-03] MEDS: Polyethylene Glycol 3350 17 GM Packet PO SCH (08:20)
[2019-05-03] MEDS: traMADol HCl 50 MG TAB PO PRN (08:27)
--- NOTE | 2019-05-03 08:57 | PRG ---
DATE OF SERVICE: 05/03/2019 SUBJECTIVE: Today, the patient says she feels a lot better. Yesterday, she was a little wheezy, this got a little worse in the afternoon, and she also had more fluid retention. At home, she takes the furosemide 20 mg daily and has not been getting this. She was restarted on the furosemide 40 mg for first dose and then back on her usual dose of 20 mg a day. This morning, she says she is breathing better, her legs are a lot smaller but still swelled. OBJECTIVE: GENERAL: The patient is sitting up in her bedside chair, having breakfast. She is alert, looks very comfortable, and in no distress. VITAL SIGNS: Her temperature is 97.2, pulse 80, respirations 18, O2 saturation 98% on room air, and blood pressure 148/67. Her weight has been stable at 140. LUNGS: There is expiratory wheeze present, but there are good breath sounds and no rales. HEART: Regular rate. EXTREMITIES: 1+ edema in the lower extremities, the patient said though this is much smaller than yesterday. LABORATORY DATA: Lab done yesterday showed a sodium 132, potassium 4.3, BUN 18, creatinine 0.7, GFR 80, glucose 84. B-type natriuretic peptide 550. ASSESSMENT: 1. Weakness and deconditioning. a. Walking up to 150 to 200 feet several times a day with a rolling walker and standby assistance, transferring with minimal assistance. b. Continues to improve as of 05/03. 2. Hospitalized at [facility] from 04/19/2019 to 04/24/2019 for left total hip replacement. Postop complicated by hyponatremia, liver enzyme abnormalities from hypotension, acute renal failure that resolved, and episode of atrial fibrillation that spontaneously converted to sinus rhythm. 3. Paroxysmal atrial fibrillation. a. On Cardizem and Eliquis. 4. Takotsubo cardiomyopathy. a. Initially found with apical ballooning, ejection fraction of 10% to 15%. b. Mild fluid overload with some mild CHF on 05/02/2019. Improved as of 05/2019. 5. Hypertension. 6. Chronic obstructive pulmonary disease. 7. Chronic hypoxemia. a. Requires O2 when sleeping and p.r.n. 8. Cancer of the lung. a. Status post left lower lobectomy on 11/25/2012. b. No signs of recurrence. 9. Constipation. 10. Left knee pain. a. Arthritis of the left knee present on x-ray with mild narrowing of the lateral joint b. Left knee is feeling good. No pain. 11. 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 a. Healing well as of 05/03/2019. PLAN: The patient seems to be doing much better today. I have restarted on her furosemide 20 mg, which she had been taking regularly at home. We will give her neb treatments q.i.d. and every 4 hours as needed. Continue PT and OT. Job ID: [id number] MTDD
[2019-05-03] MEDS: Acetaminophen 325 MG TAB PO PRN (13:00)
[2019-05-03] MEDS: Atorvastatin Calcium 10 MG TAB PO SCH (20:32)
[2019-05-03] MEDS: hydrOXYzine 25 MG TAB PO SCH (20:32)
[2019-05-03] MEDS ORDERED: Mag-Al Plus 1200 MG/1200 MG/120 MG/30 ML UDCUP PO PRN (21:45)
[2019-05-04] MEDS: traMADol HCl 50 MG TAB PO PRN (05:57)
[2019-05-04 06:47] VITALS: BP 159/67; TEMP 97.2
[2019-05-04] MEDS: Apixaban 5 MG TAB PO SCH (08:27)
[2019-05-04] MEDS: Multivitamin W/ Minerals 1 TAB PO SCH (08:28)
[2019-05-04] MEDS: Ferrous Gluconate 324 MG TAB PO SCH (08:28)
[2019-05-04] MEDS: Furosemide 20 MG TAB PO SCH (08:28)
[2019-05-04] MEDS: Carvedilol 3.125 MG TAB PO SCH (08:29)
[2019-05-04] MEDS: SYMBICORT 160/4.5 INH SCH (08:29)
[2019-05-04] MEDS: Aspirin 81 mg Enteric Coated Tablet PO SCH (08:29)
[2019-05-04] MEDS: Polyethylene Glycol 3350 17 GM Packet PO SCH (08:30)
--- NOTE | 2019-05-04 11:54 | DIS ---
DATE OF ADMISSION: 04/24/2019 DATE OF DISCHARGE: 05/04/2019 FINAL DIAGNOSES: 1. Weakness and deconditioning. a. Walking up to 150 to 200 feet several times a day with a rolling walker and standby assistance, transferring with minimal assistance. b. Continues to improve such that she feels like she is now able to manage at home as of 05/04/2019. 2. Hospitalized at [facility] from 04/19/2019 to 04/24/2019 for left total hip replacement. Postop complicated by hyponatremia, liver enzyme abnormalities from hypotension, acute renal failure that resolved, and episode of atrial fibrillation that spontaneously converted to sinus rhythm. 3. Paroxysmal atrial fibrillation. a. On Cardizem and Eliquis. 4. Takotsubo cardiomyopathy. a. Initially found with apical ballooning, ejection fraction of 10% to 15%. b.Improved with EF of 35 -40% 08/21/18. c. Developed some increased peripheral edema and mild congestive heart failure that is resolving as of 05/04. 5. Hypertension. 6. Chronic obstructive pulmonary disease. 7. Chronic hypoxemia. a. Requires O2 when sleeping and p.r.n. 8. Cancer of the lung. a. Status post left lower lobectomy on 11/25/2012. b. No signs of recurrence. 9. Constipation. 10. Left knee pain. a. Arthritis of the left knee present on x-ray with mild narrowing of the lateral joint compartment. b. Left knee is feeling good. No pain. 11. 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 a. Healing well as of 05/02/2019. REASON FOR ADMISSION: The patient is an 84-year-old white female, who has COPD, chronic hypoxemia requiring supplemental O2, cancer of the lung, for which she has undergone a left lower lobectomy in November of 2012 with no signs of any recurrence. She also has paroxysmal atrial fibrillation, for which she is on Cardizem and Eliquis. She has Takotsubo cardiomyopathy initially with apical blooming, that initially presented with very low ejection fraction that is markedly improved and she has hypertension, has severe arthritis of the left hip. On 04/19/2019, she underwent a left total hip replacement by Dr. Ortega, with no complications. She was transferred to [facility] on 04/24/2019 for physical therapy. Her physical therapy went very, very well and she showed marked improvement in her capabilities such that she was walking up to 250 feet several times a day with a rolling walker and just standby assistance. She was transferring with no difficulty. Initially, her lungs were very clear. She did develop some increased swelling and increased peripheral edema, much more than usual for her. Her Lasix had been held, but with the edema restarting and the wheezing and elevated BNP, it is felt like she had some fluid overload and probably some mild CHF. She was given her neb treatments and restarted on her Lasix, initially given 40 mg p.o. and then 20 mg daily, which she takes at home. She has had very excellent diuresis. Her weight dropped a couple pounds. Her admission weight was 140 and weight on 05/03 was down to 138. She said she was not having anymore trouble breathing and the edema was much improved. She was very upset because that Lasix had not been started earlier. The patient's incision initially had a lot of serous drainage , but gradually this resolved. Her lab studies on 04/25 showed an H and H of 8.6 and 27.9, white cell count 11,300 with 63% segs, 20% lymphocytes, and a platelet count of 517. On 05/02, sodium was 132, potassium 4.3, BUN 18, creatinine 0.70, glucose 84, B-type natriuretic peptide 550. During her hospitalization, she was continued on her Cardizem and her Eliquis. A chest x-ray had been ordered just on the morning of 05/04, but she did not feel like she needed this and this was canceled. Her condition improved such that, she felt she was ready to go home and she could manage at home with Home Health. DISPOSITION: DIET: No added salt diet. Fluid restriction of less than two quarts a day. ACTIVITIES: Ambulate with the use of a walker. Keep a protective dressing over the left hip. INSTRUCTIONS: Home Health with [facility] will [employer] on her care and arrange for in-home PT and OT and will draw CBC and basic metabolic panel before my visit in 2 weeks. MEDICATIONS: 1. Acetaminophen 325 mg two every 4 hours as needed. 2. DuoNebs by nebulizer q.i.d. and every 4 hours as needed. 3. Eliquis 2.5 mg b.i.d. 4. Aspirin 81 mg daily. 5. Atorvastatin 10 mg at bedtime. 6. Dulcolax suppository 10 mg 1 per rectum daily p.r.n. 7. Carvedilol 3.125 mg b.i.d. 8. Diltiazem 180 mg daily. 9. Ferrous gluconate 325 mg b.i.d. 10. Furosemide 20 mg at bedtime. 11. Hydroxyzine 25 mg at bedtime. 12. Benadryl 25 mg every 6 hours p.r.n. 13. Theragran-M one a day. 14. MiraLAX 17 g 8 ounces water daily. 15. Senokot-S 2 b.i.d. as needed. 16. Symbicort two inhalations twice every 12 hours. 17. Tramadol 50 mg every 6 hours as needed. FOLLOWUP: The patient is due to see her orthopedic surgeon, Dr. Ortega on . The patient will be seen by myself in 2 weeks with CBC and basic metabolic panel. CODE STATUS: Full code. Job ID: [id number] MTDD
--- NOTE | 2019-05-06 04:46 | PQF ---
[facility] Clinical Nurse Specialist Crystal Reports Winform ViewerCOLDIRON SHAHLA VALENTIN ALEXANDRE GARCIA MD [id number] CLINICAL DOCUMENTATION CLARIFICATION FORM: POST DISCHARGE Addendum to original discharge summary date: ____ Late entry note date: __ DATE: 05/05/2019 ATTN: ALEXANDRE GARCIA MD Please exercise your independent, professional judgment in responding to the clarification form. Clinical indicators are provided on the bottom of this form for your review Please check appropriate box(s): HEART FAILURE: A. TYPE: [ ] Systolic / HFrEF [ ] Diastolic / HFpEF [ ] Combined Systolic / Diastolic B. ACUITY [ ] Acute [ ] Acute on Chronic [ ] Chronic [ ] Other diagnosis [ ] Unable to determine In addition, please specify: Present on Admission (POA): [ ] Yes [ ] No [ ] Unable to determine For continuity of documentation, please document condition throughout progress notes and discharge summary. Thank You. CLINICAL INDICATORS - SIGNS / SYMPTOMS / LABS BNP 550.4 on 05/02 - Documented in Laboratory Takotsubo cardiomyopathy- Documented in H&P on 04/24 by ALEXANDRE GARCIA MD Previous Ejection fraction 51% - Documented in H&P on 04/24 by ALEXANDRE GARCIA MD Weakness following THR - Documented in H&P on 04/24 by ALEXANDRE GARCIA MD RISKS: Hx of COPD - Documented in H&P on 04/24 by ALEXANDRE GARCIA MD Paroxysmal A fib - Documented in H&P on 04/24 by ALEXANDRE GARCIA MD HTN - Documented in H&P on 04/24 by ALEXANDRE GARCIA MD Mild fluid overload - Documented in PNs on 05/03 by ALEXANDRE GARCIA MD Mild CHF - Documented in PNs on 05/03 by ALEXANDRE GARCIA MD TREATMENTS: Lasix intially given 40 mg Po and then 20 mg daily - Documented in PNs on by ALEXANDRE GARCIA MD [employer] [facility] Clinical Nurse Specialist [employer] Winform Viewer (This form is maintained as a part of the permanent medical record) 2014 [employer] All Rights Reserved [email or web address] [not provided] MTDD
== END 2019-05-04 11:15 | disposition home health service (06) | DRG 560 ==
LOC: MADMS 17:33
PROVIDERS: ADMIT Family Medicine; ATTEND Family Medicine
DX: Z47.1 Aftercare following joint replacement surgery (principal); E87.1 Hypo-osmolality and hyponatremia; I51.81 Takotsubo syndrome; I48.0 Paroxysmal atrial fibrillation; J44.9 Chronic obstructive pulmonary disease, unspecified; Z96.642 Presence of left artificial hip joint; K21.9 Gastro-esophageal reflux disease without esophagitis; R53.81 Other malaise; R53.1 Weakness; I11.0 Hypertensive heart disease with heart failure; M17.12 Unilateral primary osteoarthritis, left knee; R09.02 Hypoxemia; I50.9 Heart failure, unspecified; Z85.118 Personal history of other malignant neoplasm of bronchus and lung; Z87.891 Personal history of nicotine dependence; Z90.710 Acquired absence of both cervix and uterus; Z90.49 Acquired absence of other specified parts of digestive tract; Z88.0 Allergy status to penicillin; Z88.2 Allergy status to sulfonamides; Z88.8 Allergy status to other drugs, medicaments and biological substances
CPT/HCPCS: 36415; 80048; 80053; 83880; 85007; 85027; 94640; J7620

== ENCOUNTER 2020-02-28 10:35 | Outpatient (CLI) | payer MEDICARE, BC ==
[~2020-02-28 10:35] MED LIST changes: +Iopamidol 370 76% 100 ML VIAL ONE; -Sodium Chloride 0.9% 1,000 ML BAG ONE
--- NOTE | 2020-02-28 12:22 | CT ---
CT OF THE CHEST WITH IV CONTRAST INDICATION: 84-year-old female with history of malignant neoplasm of the bronchus COMPARISON: Prior CT of the thorax without contrast dated December 23, 2019 FINDINGS: CHEST: Lungs: Calcified pleural plaques affecting the right hemithorax is stable. Areas of scarring and roun ded atelectasis involving the right lower lobe are stable. Areas of scarring in the right upper lobe are similar appearing. Masslike consolidation seen within the left suprahilar region has resolve d. Scattered emphysema is similar appearing. Pleural space: No effusion. Mediastinum: There is a 2.4 cm hypodense lesion involving the lower pole left thyroid lobe. There is a 2.5 cm hypodense lesion involving the right mid thyroid lobe. No pathologically enlarged lymph nodes are evident. There is a small hiatal hernia. Upper abdomen:No acute abnormality. Osseous structures: There is thoracolumbar scoliosis. There is diffuse osteopenia. There is scattered degenerative and osteoarthritic change present. Soft tissues:Normal. IMPRESSION: 1. Resolution of the left suprahilar masslike consolidation, likely related to prior infection. 2. Stable right-sided chronic lung changes. 3. Stable emphysema. 4. Stable hypodense thyroid lesions. Nonemergent thyroid ultrasound is recommended for additional ivana racterization.
== END 2020-02-28 10:36 | disposition home or self-care (01) ==
LOC: MADRAD 10:35
PROVIDERS: ATTEND Family Medicine
DX: C34.90 Malignant neoplasm of unspecified part of unspecified bronchus or lung (principal); J43.9 Emphysema, unspecified; E07.89 Other specified disorders of thyroid
CPT/HCPCS: 36415; 71260; 82565; Q9967